=== PATIENT | male | born 1965 | race American Indian/Alaskan Native ===

== ENCOUNTER 2018-02-14 04:53 | Inpatient (IN) | payer MEDICAID ==
--- NOTE | 2018-02-14 05:10 | C.PDOC ---
History Of Present Illness Patient was medically cleared at [facility] and accepted in transfer to psych unit by Dr. Maldonado. Patient is pleasant, denies suicidal ideation or homicidal ideation. Time Seen by Provider: 02/14/18 05:07 Chief Complaint (Nursing): Psychiatric Evaluation History Per: Other ([facility]) History/Exam Limitations: no limitations Onset/Duration Of Symptoms: Hrs Current Symptoms Are (Timing): Still Present Suicide/Self Injury Attempted (Context): None Modifying Factor(s): None Severity: None Pain Scale Rating Of: 0 Associated Symptoms: Depression. denies: Suicidal Thoughts, Other (Homicidal ideation) Involuntary Hold By: None Recent travel outside of the [place]: No Past Medical History Reviewed: Historical Data, Nursing Documentation, Vital Signs Vital Signs: Last Vital Signs Temp 98.4 F 02/14/18 05:01 Pulse 60 02/14/18 05:01 Resp 20 02/14/18 05:01 BP 139/79 02/14/18 05:01 Pulse Ox 97 02/14/18 05:01 Family History: States: No Known Family Hx - Social History Hx Alcohol Use: No Hx Substance Use: Yes - Immunization History Hx Tetanus Toxoid Vaccination: No Hx Influenza Vaccination: No Hx Pneumococcal Vaccination: No Review Of Systems Constitutional: Negative for: Fever, Chills Cardiovascular: Negative for: Chest Pain, Palpitations Respiratory: Negative for: Cough, Shortness of Breath Gastrointestinal: Negative for: Nausea, Vomiting Psych: Positive for: Depression. Negative for: Suicidal ideation, Other (Homicidal ideation) Physical Exam - Physical Exam Appears: Non-toxic Skin: Warm, Dry Head: Normacephalic Oral Mucosa: Moist Chest: Symmetrical, No Tenderness Cardiovascular: Rhythm Regular Respiratory: No Rales, No Rhonchi, No Wheezing Gastrointestinal/Abdominal: Soft, No Tenderness Neurological/Psych: Oriented x3 ED Course And Treatment O2 Sat by Pulse Oximetry: 97 (Room air) Pulse Ox Interpretation: Normal Disposition Discussed With : Nahum Maldonado Comment: accepted the pt on his service and took over the care at 5:09AM Doctor Will See Patient In The: Hospital Counseled Patient/Family Regarding: Studies Performed, Diagnosis - Disposition Disposition: HOSPITALIZED Disposition Time: 05:09 Condition: FAIR Forms: [facility] (Greenlandic) - POA Present On Arrival: None - Clinical Impression Clinical Impression: Major depression, Phencyclidine (PCP) use disorder, severe - Scribe Statement The provider has reviewed the documentation as recorded by the Scribe Ricardo Mak All medical record entries made by the Nataliyaibe were at my direction and personally dictated by me. I have reviewed the chart and agree that the record accurately reflects my personal performance of the history, physical exam, medical decision making, and the department course for this patient. I have also personally directed, reviewed, and agree with the discharge instructions and disposition. Decision To Admit - Pt Status Changed To: Hospital Disposition Of: Inpatient - Admit Certification Admit to Inpatient:: After my assessment, the patient will require hospitalization for at least two midnights. This is because of the severity of symptoms shown, intensity of services needed, and/or the medical risk in this patient being treated as an outpatient. - InPatient: Physician Admission Certification: I certify that this patient requires 2 or more midnights of care for the following reason:: After my assessment, the patient will require hospitalization for at least two midnights. This is because of the severity of symptoms shown, intensity of services needed, and/or the medical risk in this patient being treated as an outpatient. - . Bed Request Type: Psychiatry Admitting Physician: Nahum Maldonado Patient Diagnosis: Major depression, Phencyclidine (PCP) use disorder, severe
--- NOTE | 2018-02-14 06:32 | PCM.BM ---
<Seth Aj - Last Filed: 02/14/18 06:30> Treatment Plan Problems - Problems identified on initial assessmt SUICIDAL IDEATION Date Initiated: 02/14/18 Time Initiated: 06:05 Assessment reference: NA Status: Active SUBSTANCE ABUSE Date Initiated: 02/14/18 Time Initiated: 06:05 Assessment reference: NA Status: Active Treatment assets and liabiliti Patient Assests: cooperative, self-reliant, ADL independent, negotiates basic needs, cognitively intact Patient Liabilities: financial problems, substance abuse - Milieu Protocol Maintain good personal hygiene: daily Encourage regular showers, daily Remind patient to perform daily oral care, daily Assist patient to perform ADL's Maintain personal safety: every shift Educate patient to report safety concerns to staff, every shift Monitor environment for contraband/sharps Medication safety: Monitor for expected outcome, potential side effects: every shift, Assess barriers to learning: every shift, Assess readiness for medication education: every shift <Nahum Maldonado - Last Filed: 02/14/18 14:35> - Diagnosis (1) Schizophrenia, paranoid, chronic Status: Acute Interventions: 02/14/18 14:36 * Assess/adjust medications daily and /or as needed * See patient on an individual basis 7x/week to assess status of hallucinations * Discuss risks, benefits, side effects and alternatives of medications * (2) Phencyclidine (PCP) use disorder, severe Status: Acute Interventions: 02/14/18 14:37 * Assess 7x/week regarding severity of withdrawal * Educate regarding risks, benefits, side effects and alternatives of medications * Use Motivational Interviewing for abstinence * Use CBT for relapse prevention * Medication management for withdrawal symptoms * Encourage medication assisted treatment * <Niharika Gaona - Last Filed: 02/15/18 15:44> Family Contact Family involvement: Patient does not wish Family/SO involvement Family contact: Patient declines to allow family contact at present - Goals for Treatment Patient goals for treatment: "I want to be referred to [facility] in [place], [place]." Discharge/Continuing Care - Education Needs Education Needs: Patient Medication, Patient Diagnosis/Disease Process, Patient Coping Skills, Patient Placement options, Patient Community resources - Discharge Discharge Criteria: Free of Suicidal thoughts, Normal sleep pattern, Ability to care for self, No longer exhibiting s/s of withdrawal, Reduction of target symptoms Discharge to:: Substance Abuse Rehab - Treatment Team Participation Discussed with Family/SO: No Was Patient/Family/SO present at Treatment Team Meeting: Yes
--- NOTE | 2018-02-14 10:45 | PCM.PSYCH ---
Initial Psychiatric Evaluation - Initial Psychiatric Evaluation Type of Admission: Voluntary Legal Status: Capacity Chief Complaint (in patient's own words): I was hearing voices to kill myself.' History of Present Illness and Precipitating Events: Pt is a 52yr old AAM, who was transferred from [facility] with a previous psychiatric history of Schizophrenia due to a strong urge to kill himself. Pt reports history of 1 inpatient psychiatric hospitalization, he has previously been hospitalized 1 yr ago due to similar reasons (hearing voices) and does not follow up with anyone outpatient for his psychiatric condition. He remained superficially cooperative but guarded about the details. He states that he's been hearing voices telling him to kill himself. He is not seeing shadows but admits that he sometimes feels like he's being followed. He admits feeling depressed following the recent deaths of 3 family members, feelings of anhedonia, having low energy, trouble sleeping feeling irritable, having racing thoughts. He denies feelings of distractibility. He currently denies feelings of self harm and harm to others. 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 He states that he as been clean for 17-20 years and this is his 2nd relapse. He has a history of cocaine, alcohol and PCP use. He does not know how much he used. He has been eating poorly. Medical hx: Denies Allergies: Haloperidol: Acute dystonic rxn (tongue) Surgery: Denies Hospitalizations: Denies Family hx: Denies Medications: Previously was on Seroquel and trazodone but not currently taking any medications Current Medications: Active Medications Generic Name Dose Route Start Last Admin Trade Name Eli PRN Reason Stop Dose Admin Influenza Virus Vaccine 60 mcg 02/16/18 10:00 Fluzone Quad [id number] IM 02/16/18 10:01 .ONCE ONE Pneumococcal Polyvalent Vaccine 0.5 ml 02/16/18 10:30 Pneumovax 23 Vaccine IM 02/16/18 10:31 .ONCE ONE Past Psychiatric History - Past Psychiatric History Previous Treatment History: Inpatient Pertinent Medical Hx (Current Medical&Sleep Prob, Allergies): Allergies Allergy/AdvReac Type Severity Reaction Status Date / Time haloperidol [From Haldol] Allergy Verified 02/14/18 05:07 No Known Home Med 02/14/18 Review of Systems - Review of Systems All systems: reviewed and no additional remarkable complaints except - Psychiatric Psychiatric: Anxiety, Auditory Hallucinations, Irritability, Suicidal Ideation Mental Status Examination - Personal Presentation Personal Presentation: Looks stated age - Affect Affect: Constricted, Depressed - Motor Activity Motor Activity: Calm - Reliability in Providing Information Reliability in Providing Information: Poor, due to alteration in thoughts, Poor, due to altered mood - Speech Speech: Organized - Mood Mood: Depressed, Anxious - Formal Thought Process Formal Thought Process: Hallucinations, Paranoia - Obsessions/Compulsions Obsessions: No Compulsions: No - Cognitive Functions Orientation: Person, Place, Situation, Time Sensorium: Alert Attention/Concentration: Attentive Abstract Thinking: [place] Estimate of Intelligence: Below average Judgement: Imparied, as evidence by: Poor judgement, Imparied, as evidence by: Lack of insight into illness - Risk Risk: Suicidal, Diminished functioning - Limitations Limitations: Living alone DSM 5 DX - DSM 5 DSM 5 Diagnosis: Schizophrenia paranoid type continuous Cocaine use disorder severe PCP use disorder severe Cannabis use disorder moderate - Recommended/Plan of Treatment Treatment Recommendations and Plan of Treatment: Schizophrenia paranoid type continuous Cocaine use disorder severe PCP use disorder severe Cannabis use disorder moderate CBT Psychoeducation Supportive therapy therapy Seroquel 100 mg by mouth daily at bedtime Ativan 1 mg by mouth every 6 hours when necessary Neurontin 300 mg by mouth 3 times a day Olanzapine 5 mg daily at bedtime - Smoking Cessation Smoking Cessation Initiated: No
[2018-02-14] MEDS ORDERED: Aluminum Hydroxide/Magnesium Hydroxide Susp (30 mL) PO PRN (14:10)
--- NOTE | 2018-02-15 11:08 | PCM.PYCHPN ---
Psychiatric Progress Note - Psychiatric Progress Note Patient seen today, length of contact: 15 min Patient Chief Complaint: I was hearing voices to kill myself.' Problems Identified/Issues Discussed: Patient seen and evaluated, chart reviewed and discussed with the nurse. Patient remained disorganized and internally preoccupied. Patient remained isolated, confined and withdrawn. He still reports of hearing voices. Patient still appears paranoid and delusional. He reports depressed mood and feelings of hopelessness and helplessness. He is taking medication and denies any side effects. Symptoms are improving but needs more time for stabilization. Supportive therapy and psychoeducation were given. Medication Change: Yes Medical Record Reviewed: Yes Mental Status Examination - Cognitive Function Orientation: Person, Place, Situation, Time Memory: Intact Attention: WNL Concentration: Poor Association: WNL Fund of Knowledge: Poor - Mood Mood: Depressed, Anxious - Affect Affect: Constricted, Depressed - Speech Speech: Soft - Formal Thought Process Formal Thought Process: Hallucinations, Paranoia - Suicidal Ideation Suicidal Ideation: No - Homicidal Ideation Homicidal Ideation: No Goal/Treatment Plan - Goal/Treatment Plan Need for Continued Stay: Severe depression anxiety, Severe functional impairment Progress Toward Problem(s) and Goals/Treatment Plan: Schizophrenia paranoid type continuous Cocaine use disorder severe PCP use disorder severe Cannabis use disorder moderate CBT Psychoeducation Supportive therapy therapy Seroquel 100 mg by mouth daily at bedtime Ativan 1 mg by mouth every 6 hours when necessary Neurontin 300 mg by mouth 3 times a day Olanzapine 5 mg daily at bedtime - Smoking Cessation Smoking Cessation Initiated: No
[2018-02-16] MEDS ORDERED: Influenza Vaccine 60 MCG/0.5 ML SYR (3 yr & up) IM ONE (10:00)
[2018-02-16] MEDS ORDERED: Pneumococcal 23-Valent Vaccine IM ONE (10:30)
--- NOTE | 2018-02-16 10:41 | PCM.PYCHPN ---
Psychiatric Progress Note - Psychiatric Progress Note Patient seen today, length of contact: 15 min Patient Chief Complaint: I m feeling little better Problems Identified/Issues Discussed: Patient seen and evaluated, chart reviewed and discussed with the nurse. Patient appears more organized and less internally preoccupied than before. He reports depressed mood but reports some improvement in the feelings of hopelessness and helplessness. Patient remained isolated, confined and withdrawn. Patient still appears paranoid and delusional. He is taking medication and denies any side effects. Symptoms are improving but needs more time for stabilization. Supportive therapy and psychoeducation were given. Medication Change: Yes Medical Record Reviewed: Yes Mental Status Examination - Cognitive Function Orientation: Person, Place, Situation, Time Memory: Intact Attention: WNL Concentration: Poor Association: WNL Fund of Knowledge: Poor - Mood Mood: Depressed, Anxious - Affect Affect: Constricted, Depressed - Speech Speech: Soft - Formal Thought Process Formal Thought Process: Hallucinations, Paranoia - Suicidal Ideation Suicidal Ideation: No - Homicidal Ideation Homicidal Ideation: No Goal/Treatment Plan - Goal/Treatment Plan Need for Continued Stay: Severe depression anxiety, Severe functional impairment Progress Toward Problem(s) and Goals/Treatment Plan: Schizophrenia paranoid type continuous Cocaine use disorder severe PCP use disorder severe Cannabis use disorder moderate CBT Psychoeducation Supportive therapy therapy Seroquel 100 mg by mouth daily at bedtime Ativan 1 mg by mouth every 6 hours when necessary Neurontin 300 mg by mouth 3 times a day Olanzapine 5 mg daily at bedtime
[2018-02-17 10:14] VITALS: RESP 18
--- NOTE | 2018-02-17 10:46 | PCM.PYCHPN ---
Psychiatric Progress Note - Psychiatric Progress Note Patient seen today, length of contact: 15 min Patient Chief Complaint: I m feeling much better.' Problems Identified/Issues Discussed: Patient seen and evaluated, chart reviewed and discussed with the nurse. Patient reports improvement in his mood and paranoia. However, he remained isolated, confined and withdrawn. He is taking medication and denies any side effects. Symptoms are improving but needs more time for stabilization. Supportive therapy and psychoeducation were given. Medication Change: Yes Medical Record Reviewed: Yes Mental Status Examination - Cognitive Function Orientation: Person, Place, Situation, Time Memory: Intact Attention: WNL Concentration: WNL Association: WNL Fund of Knowledge: Poor - Mood Mood: Depressed, Anxious - Affect Affect: Constricted, Depressed - Speech Speech: Soft - Formal Thought Process Formal Thought Process: No Impairment - Suicidal Ideation Suicidal Ideation: No - Homicidal Ideation Homicidal Ideation: No Goal/Treatment Plan - Goal/Treatment Plan Need for Continued Stay: Severe depression anxiety, Severe functional impairment Progress Toward Problem(s) and Goals/Treatment Plan: Schizophrenia paranoid type continuous Cocaine use disorder severe PCP use disorder severe Cannabis use disorder moderate CBT Psychoeducation Supportive therapy therapy Seroquel 100 mg by mouth daily at bedtime Ativan 1 mg by mouth every 6 hours when necessary Neurontin 300 mg by mouth 3 times a day Olanzapine 5 mg daily at bedtime - Smoking Cessation Smoking Cessation Initiated: No
[2018-02-18 06:59] VITALS: BP 100/66; PULSE 75; TEMP 98.6; O2SAT 98
--- NOTE | 2018-02-18 11:31 | PCM.PYCHDC ---
Mental Status Examination - Mental Status Examination Orientation: Person, Place, Situation, Time Memory: Intact Mood: Neutral Affect: Constricted Speech: Soft Attention: WNL Concentration: WNL Association: WNL Fund of Knowledge: WNL Formal Thought Process: No Impairment Description of patient's judgement and insight: good, fair Psychotic Thoughts and Behaviors: denies any AVH Suicidal Ideation: No Current Homicidal Ideation?: No Discharge Summary - Discharge Note Reason for Hospitalization: Pt is a 52yr old AAM, who was transferred from [facility] with a previous psychiatric history of Schizophrenia due to a strong urge to kill himself. Pt reports history of 1 inpatient psychiatric hospitalization, he has previously been hospitalized 1 yr ago due to similar reasons (hearing voices) and does not follow up with anyone outpatient for his psychiatric condition. He remained superficially cooperative but guarded about the details. He states that he's been hearing voices telling him to kill himself. He is not seeing shadows but admits that he sometimes feels like he's being followed. He admits feeling depressed following the recent deaths of 3 family members, feelings of anhedonia, having low energy, trouble sleeping feeling irritable, having racing thoughts. He denies feelings of distractibility. He currently denies feelings of self harm and harm to others. 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 He states that he as been clean for 17-20 years and this is his 2nd relapse. He has a history of cocaine, alcohol and PCP use. He does not know how much he used. He has been eating poorly. Medical hx: Denies Allergies: Haloperidol: Acute dystonic rxn (tongue) Surgery: Denies Hospitalizations: Denies Family hx: Denies Medications: Previously was on Seroquel and trazodone but not currently taking any medications Consultations:: List each consultation separately and include: 1. Reason for request. 2. Findings. 3. Follow-up Summary of Hospital Course include:: 1. Description of specific treatment plan utilized for patients during their course of treatmen. 2. Summarize the time- course for resolution of acute symptoms and/or regressed behaviors. 3. Describe issues identified and worked on during hospitalization. 4. Describe medication utilized. 5. Describe medical problems identified and treated. 6. Reassessment of suicide risk Summary of Hospital Course: During the course of his stay, patient (pt) started progressively improving and no longer remained irritable, depressed, and suicidal. His mood and paranoia was improved and he started attending groups and meetings and started socializing. Patient denied any feelings of hopelessness, helplessness, and worthlessness, denied any problem with the sleep or appetite, denied suicidal ideation or homicidal ideation. Pt denied any auditory or visual hallucinations. He denied any withdrawal symptoms. Pt was treated with medications along with supportive therapy, milieu therapy and group therapy. Some changes were made in his current medications and patient was discharged on following medications. He tolerated these medications very well and denied any side effects. - Diagnosis (1) Schizophrenia, paranoid, chronic Status: Acute (2) Phencyclidine (PCP) use disorder, severe Status: Acute - Final Diagnosis (DSM 5) Condition upon Discharge: FAIR DSM 5: Schizophrenia paranoid type continuous Cocaine use disorder severe PCP use disorder severe Cannabis use disorder moderate Disposition: HOME/ ROUTINE Follow-up Treatment Plan: Followup: He was discharged to [facility] [place], [place]. Education: Pt was educated and counseled about the risks and benefits of taking and not taking medications. Pt was educated and counseled about the risks of drinking and abusing drugs. Pt was educated and counseled to go to the ER or call 911 if pt develop suicidal ideation or homicidal ideation, worsening of symptoms or severe side effects of the meds. Prescriptions/Medication Reconciliation: QUEtiapine [Seroquel] 200 mg PO HS #30 tab traZODone [Desyrel] 50 mg PO HS #30 tab - Smoking Cessation Smoking Cessation Medication prescribed: No - Antipsychotic Medications Pt discharged on 2 or more routine antipsychotic medications: No
== END 2018-02-18 12:00 | disposition home or self-care (01) | DRG 750 ==
LOC: C.ER 04:53 → C.5E 05:08
PROVIDERS: ADMIT Psychiatry & Neurology Psychiatry; ATTEND Psychiatry & Neurology Psychiatry
PROC: GZHZZZZ Group Psychotherapy (ICD-10-PCS; principal; 2018-02-14)
PROC: GZ56ZZZ Individual Psychotherapy, Supportive (ICD-10-PCS; 2018-02-14)
DX: F20.0 Paranoid schizophrenia (principal); F16.10 Hallucinogen abuse, uncomplicated; F14.10 Cocaine abuse, uncomplicated; F12.10 Cannabis abuse, uncomplicated